=== PATIENT | female | born 1970 | race African-American/Black ===

== ENCOUNTER 2017-11-08 14:19 | Emergency (ER) | payer OTHER ==
[~2017-11-08] VITALS: Ht 185.4 cm; Wt 150.0 kg
[~2017-11-08 14:19] MED LIST: AMOXICILLIN/CL875 MG PO; ANAPROX DS550 MG OR; AUGMENTIN875TAB PO; B-121000 MC1 PO; BACTRIM DS1 TAB PO; BL ADULT ASA81 MG OR; CETIRIZINE HCL10 MG PO; CIPROFLOXACN500 MG PO; CITALOPRAM40 MG PO; DICLOFENAC50 MG PO; DIFLUCAN150 MG OR; DIOVAN HCT160 MG/25 OR; DIOVAN HCT160 MG/25 PO; DOXYCYCL HYC100 MG PO; FERR SULFATE325 MG PO; FLEXERIL OR; FLEXERIL PO; FLEXERIL5 M1 PO; FLONASE0.05 %; FOLIC ACID1 M1; FREESTYLE LANCET SC; GLYBURIDE2.5 MG PO; HYDROCODONE/ACE1 TAB PO; KETOROLAC60 MG/2 ML IJ; LANCET MICRO SC; LEVOTHYROXIN25 MC1 PO; LEVOTHYROXIN50 MC1 PO; METFORMIN500 M2 PO; METFORMIN500 MG PO; METOPROLOL SUCC50 MG OR; METOPROLOL SUCC50 MG PO; METOPROLOL50 MG OR; MULTIVITAMI1 OR; NAPROSYN500 MG PO; NASONEX50 MCG/AC; NEXIUM40 M1 OR; OMEPRAZOLE40 MG PO; PRILOSEC40 MG PO; ROCEPHIN 2250 MG/VIA IM; TRAMADOL HCL50 MG PO; VYTORIN 10/201 TAB OR; ZANAFLEX4 M2 PO; ZANAFLEX4 MG PO; ZITHROMAX500 MG PO; ZYRTEC10 MG PO; [UNRECOGNIZED DRUG - OTHER] VA; glucometer; test strips SC
[2017-11-08 15:21] LABS: HEMATOCRIT 36.5 % (37.0-47.0); HEMOGLOBIN 12.2 g/dl (12.0-16.0); IMMATURE GRANULOCYTES 0.5 % (0.0-1.0); MEAN CELL VOLUME 97.6 fL CALC (80.0-100.0); MEAN CORPUSCULAR HGB 32.6 pG CALC (26.0-32.0); MEAN CORPUSCULAR HGB CONC 33.4 g/L CALC (32.0-36.0); NEUT# 6.49 thou/uL (2.00-7.15); RED BLOOD COUNT 3.74 mill/uL (4.20-5.60); RED CELL DISTRI WIDTH 13.1 % (11.5-15.5)
[2017-11-08 15:41] LABS: ALKALINE PHOSPHATASE 49 u/l (38-126); BUN 9 mg/dL (7-17); BUN/CREATININE RATIO 19 (12-20 (CALC)); CHLORIDE 113 mmol/l (95-108); CREATININE 0.5 mg/dL (0.5-1.0); GFR > 60 ML/MIN (>=60 (CALC)); GFR FOR AFR.AMER. > 60 ML/MIN (>=60 (CALC)); SGOT/AST 13 u/l (14-36); SGPT/ALT 21 u/l (9-52); SODIUM 142 mmol/l (137-146)
[2017-11-08 15:53] LABS: ALBUMIN 2.9 g/dL (3.2-5.0); ANION GAP 13 (6-22 (CALC)); CARBON DIOXIDE 19 mmol/l (22-30); MYOGLOBIN 24 ng/mL (0 - 62)
[2017-11-08 16:40] LABS: URINE BILIRUBIN - DIPSTICK NEGATIVE (NEGATIVE); URINE BLOOD DIPSTICK NEGATIVE (NEGATIVE); URINE COLOR YELLOW; URINE GLUCOSE - DIPSTICK NEGATIVE (NEGATIVE); URINE KETONE NEGATIVE (NEGATIVE); URINE LEUK ESTERASE NEGATIVE (NEGATIVE); URINE NITRITE - DIPSTICK NEGATIVE (Negative); URINE PROTEIN - DIPSTICK NEGATIVE (NEG-TRACE); URINE SPECIFIC GRAVITY 1.015; URINE UROBILINOGEN - DIPSTICK 0.2 E.U./dL (0.2)
[2017-11-08 16:42] LABS: URINE CLARITY CLEAR
[2017-11-08 18:19] LABS: ALKALINE PHOSPHATASE 64 u/l (38-126); BILIRUBIN, TOTAL 0.2 mg/dL (0.0-1.4); BUN 14 mg/dL (7-17); BUN/CREATININE RATIO 22 (12-20 (CALC)); CHLORIDE 102 mmol/l (95-108); CREATININE 0.7 mg/dL (0.5-1.0); GFR > 60 ML/MIN (>=60 (CALC)); GFR FOR AFR.AMER. > 60 ML/MIN (>=60 (CALC)); SGOT/AST 13 u/l (14-36); SGPT/ALT 24 u/l (9-52); SODIUM 137 mmol/l (137-146)
[2017-11-08 18:20] LABS: ALBUMIN 3.9 g/dL (3.2-5.0); ANION GAP 14 (6-22 (CALC)); CARBON DIOXIDE 25 mmol/l (22-30); POTASSIUM 4.3 mmol/l (3.5-5.1); TOTAL PROTEIN 7.4 g/dL (6.3-8.2)
[2017-11-08] MEDS ORDERED: POTASSIUM CHLO20 ME1 PO (18:48)
[2017-11-08 19:02] VITALS: BP 119/65
== END 2017-11-08 19:02 | disposition home or self-care (01) | DRG 866 ==
LOC: ED 14:19
DX: B34.9 Viral infection, unspecified (principal); R06.02 Shortness of breath; I10 Essential (primary) hypertension; D64.9 Anemia, unspecified; R07.0 Pain in throat

== ENCOUNTER 2019-07-04 | Emergency (ER) | payer MEDICAID ==
[~2019-07-04] MED LIST changes: +ANUCORT-HC25 MG RE; +POTASSIUM CHLO20 ME1 PO; +PROCTOFOAM HC10 GM RE; +XYLOCAINE G5 ML/TUBE EX
[2019-07-04] MEDS ORDERED: LEVOTHYROXIN125 MCG PO (04:05)
[2019-07-04] MEDS ORDERED: METFORMIN500 M2 PO (04:06)
[2019-07-04] MEDS ORDERED: METOPROL TAR25 MG PO (04:06)
[2019-07-04] MEDS ORDERED: ASPIRIN CHEWABL81 MG PO (04:06)
[2019-07-04] MEDS ORDERED: OXYCODONE5 MG PO (04:07)
[2019-07-04] MEDS ORDERED: NEXIUM2.5 MG (04:07)
[2019-07-04] MEDS ORDERED: GABAPENTIN300 M2 (04:07)
[2019-07-04 05:14] LABS: URINE BILIRUBIN - DIPSTICK NEGATIVE (NEGATIVE); URINE BLOOD DIPSTICK TRACE-INTACT (NEGATIVE); URINE COLOR YELLOW; URINE GLUCOSE - DIPSTICK NEGATIVE (NEGATIVE); URINE KETONE NEGATIVE (NEGATIVE); URINE SPECIFIC GRAVITY 1.025; URINE UROBILINOGEN - DIPSTICK 0.2 E.U./dL (0.2)
[2019-07-04 05:17] LABS: URINE LEUK ESTERASE SMALL (NEGATIVE); URINE NITRITE - DIPSTICK POSITIVE (Negative); URINE PROTEIN - DIPSTICK NEGATIVE (NEG-TRACE)
[2019-07-04 05:23] LABS: URINE BACTERIA MANY hpf; URINE EPITHELIAL CELLS MODERATE EPI/hpf (0-FEW); URINE WBC >100 WBC/hpf (0-5)
[2019-07-04] MEDS ORDERED: CIPROFLOXACN500 MG PO (05:36)
== END 2019-07-04 05:50 | disposition home or self-care (01) ==
PROVIDERS: Emergency Medicine
DX: N39.0 Urinary tract infection, site not specified (principal); I10 Essential (primary) hypertension; E03.9 Hypothyroidism, unspecified; E11.40 Type 2 diabetes mellitus with diabetic neuropathy, unspecified; B96.20 Unspecified Escherichia coli [E. coli] as the cause of diseases classified elsewhere; Z79.84 Long term (current) use of oral hypoglycemic drugs

== ENCOUNTER 2020-09-07 12:04 | Emergency (ER) | payer MEDICAID ==
[~2020-09-07 12:04] MED LIST changes: +ASPIRIN CHEWABL81 MG PO; +GABAPENTIN300 M2; +LEVOTHYROXIN125 MCG PO; +METOPROL TAR25 MG PO; +NEXIUM2.5 MG; +OXYCODONE5 MG PO
[2020-09-07] MEDS ORDERED: AMOX/K CLAV875 M1 PO (12:31)
[2020-09-07 12:45] VITALS: BP 157/90
== END 2020-09-07 12:46 | disposition home or self-care (01) ==
LOC: ED 12:04
DX: K59.03 Drug induced constipation (principal); T40.2X5A Adverse effect of other opioids, initial encounter; J32.9 Chronic sinusitis, unspecified; I10 Essential (primary) hypertension; E03.9 Hypothyroidism, unspecified; E11.40 Type 2 diabetes mellitus with diabetic neuropathy, unspecified; Z79.84 Long term (current) use of oral hypoglycemic drugs; Z79.891 Long term (current) use of opiate analgesic

== ENCOUNTER 2022-08-11 15:03 | Emergency (ER) | payer MEDICAID ==
[~2022-08-11] VITALS: Ht 185.4 cm; Wt 145.2 kg
[~2022-08-11 15:03] MED LIST changes: +AMOX/K CLAV875 M1 PO
[2022-08-11 16:20] LABS: BASO% 0.6 % (0-3); EOS% 2.5 % (0-8); HEMATOCRIT 39.1 % (37.0-47.0); HEMOGLOBIN 12.5 g/dl (12.0-16.0); IMMATURE GRANULOCYTES 0.2 % (0.0-5.0); LYMPH% 40.6 % (15-41); MEAN CELL VOLUME 102.6 fL CALC (80.0-100.0); MEAN CORPUSCULAR HGB 32.8 pG CALC (26.0-32.0); MONO% 7.4 % (2-13); NEUT# 3.16 thou/uL (2.00-7.15); NEUT% 48.7 % (42-76); RED BLOOD COUNT 3.81 mill/uL (4.20-5.60); RED CELL DISTRI WIDTH 12.3 % (11.5-15.5)
[2022-08-11 16:34] LABS: ALKALINE PHOSPHATASE 71 u/l (38-126); ANION GAP 13 (6-22 (CALC)); BUN 12 mg/dL (7-17); BUN/CREATININE RATIO 16 (12-20 (CALC)); CARBON DIOXIDE 28 mmol/l (22-30); CHLORIDE 103 mmol/l (95-108); CREATININE 0.7 mg/dL (0.5-1.0); GFR FOR AFR.AMER. > 60 ML/MIN (>=60 (CALC)); GFR OTHER RACES > 60 ML/MIN (>=60 (CALC)); POTASSIUM 4.6 mmol/l (3.5-5.1); SGOT/AST 29 u/l (14-36); SODIUM 140 mmol/l (137-146); TOTAL PROTEIN 7.1 g/dL (6.3-8.2)
[2022-08-11 17:13] LABS: URINE BILIRUBIN - DIPSTICK NEGATIVE (NEGATIVE); URINE BLOOD DIPSTICK NEGATIVE (NEGATIVE); URINE COLOR YELLOW; URINE GLUCOSE - DIPSTICK NEGATIVE (NEGATIVE); URINE KETONE NEGATIVE (NEGATIVE); URINE LEUK ESTERASE NEGATIVE (NEGATIVE); URINE PROTEIN - DIPSTICK NEGATIVE (NEG-TRACE); URINE SPECIFIC GRAVITY >=1.030; URINE UROBILINOGEN - DIPSTICK 0.2 E.U./dL (0.2)
[2022-08-11 17:25] LABS: URINE NITRITE - DIPSTICK NEGATIVE (Negative)
[2022-08-11] MEDS ORDERED: DULCOLAX10 MG RE (18:51)
[2022-08-11] MEDS ORDERED: MIRALAX17 GM PO (18:51)
[2022-08-11 19:06] VITALS: BP 136/64
== END 2022-08-11 19:27 | disposition home or self-care (01) ==
LOC: ED 15:03
PROVIDERS: Family Medicine
DX: Z03.823 Encounter for observation for suspected inserted (injected) foreign body ruled out (principal); K59.00 Constipation, unspecified; I10 Essential (primary) hypertension; E11.40 Type 2 diabetes mellitus with diabetic neuropathy, unspecified; E66.01 Morbid (severe) obesity due to excess calories; E03.9 Hypothyroidism, unspecified

== ENCOUNTER 2023-06-28 02:21 | Emergency (ER) | payer MEDICAID ==
[~2023-06-28] VITALS: Ht 185.4 cm; Wt 146.0 kg
[~2023-06-28 02:21] MED LIST changes: +DULCOLAX10 MG RE; +MIRALAX17 GM PO
[2023-06-28] MEDS ORDERED: SULFAMETHOXAZOLE W/TRIMETHOPRI 1 COMBO TAB PO ONE (02:45)
[2023-06-28] MEDS ORDERED: BACTRIM DS1 TAB PO (02:48)
[2023-06-28 03:00] VITALS: BP 138/80
[2023-06-28 03:09] VITALS: BP 138/80
== END 2023-06-28 03:09 | disposition home or self-care (01) ==
LOC: ED 02:21
DX: T81.41XA Infection following a procedure, superficial incisional surgical site, initial encounter (principal); I10 Essential (primary) hypertension; E03.9 Hypothyroidism, unspecified; E11.40 Type 2 diabetes mellitus with diabetic neuropathy, unspecified; Y83.9 Surgical procedure, unspecified as the cause of abnormal reaction of the patient, or of later complication, without mention of misadventure at the time of the procedure

== ENCOUNTER 2024-01-02 07:55 | Emergency (ER) | payer MEDICAID ==
[~2024-01-02] VITALS: Ht 185.4 cm; Wt 145.0 kg
[2024-01-02] VITALS (21 sets, daily range): BP systolic 107–171; BP diastolic 84–116
[2024-01-02] MEDS ORDERED: KETOROLAC TROMETHAMINE 30 MG/ML SDV IV ONE (08:30)
[2024-01-02 08:46] LABS: BASO% 0.5 % (0-3); EOS% 2.7 % (0-8); HEMATOCRIT 36.6 % (37.0-47.0); HEMOGLOBIN 11.7 g/dl (12.0-16.0); IMMATURE GRANULOCYTES 0.2 % (0.0-5.0); LYMPH% 36.9 % (15-41); MEAN CELL VOLUME 100.3 fL CALC (80.0-100.0); MEAN CORPUSCULAR HGB 32.1 pG CALC (26.0-32.0); MONO% 7.3 % (2-13); NEUT# 3.07 thou/uL (2.00-7.15); NEUT% 52.4 % (42-76); RED BLOOD COUNT 3.65 mill/uL (4.20-5.60); RED CELL DISTRI WIDTH 13.2 % (11.5-15.5)
[2024-01-02 09:02] LABS: ALBUMIN 4.2 g/dL (3.2-5.0); BILIRUBIN, TOTAL 0.3 mg/dL (0.02-1.3); CREATININE 0.6 mg/dL (0.5-1.0); POTASSIUM 3.9 mmol/l (3.5-5.1); TOTAL PROTEIN 7.8 g/dL (6.3-8.2)
[2024-01-02] MEDS ORDERED: cefTRIAXone SODIUM 2 GM in SODIUM CHLORIDE 0.9% 100 ML IV ONE (11:45)
[2024-01-02] MEDS ORDERED: AMPICILLIN & SULBACTAM SODIUM 3 GM in SODIUM CHLORIDE 0.9% 100 ML IV ONE (12:05)
[2024-01-02] MEDS ORDERED: DEXAMETHASONE SOD. PHOSPHATE 10 MG/ML VIAL IV ONE (12:05)
[2024-01-02] MEDS ORDERED: AMOX/K CLAV875 M1 PO ×2 (12:07→12:50)
== END 2024-01-02 13:00 | disposition home or self-care (01) ==
LOC: ED 07:55
PROVIDERS: Family Medicine
DX: L03.211 Cellulitis of face (principal); E11.40 Type 2 diabetes mellitus with diabetic neuropathy, unspecified; I10 Essential (primary) hypertension; E03.9 Hypothyroidism, unspecified; E66.9 Obesity, unspecified
CPT/HCPCS: Q9967